=== PATIENT | female | born 1990 | race African-American/Black ===

== ENCOUNTER 2021-05-31 10:05 | Emergency (ER) | payer SELFPAY ==
[2021-05-31 10:20] VITALS: BP 126/95; PULSE 75; RESP 16; TEMP 37.2; O2SAT 100
--- NOTE | 2021-05-31 10:55 | ED.GENADULT ---
HPI - General Adult General Chief complaint: Headache Stated complaint: needs to be checked for work History of Present Illness HPI narrative: This is a 30-year-old female presents to the urgent care complaining of having some lightheadedness and a headache yesterday at work patient needed to step back that required her to go see occupational health who is requiring her to be evaluated. Patient states that this happens every 28 days when she becomes on her menstrual cycle according to patient she has severe symptoms where she becomes nauseated and vomits in severe pain. Patient denies losing any consciousness states that this happens often she just needs a few moments to sit down this is nothing new patient is here from [place] due to a daughter transferred and will be evaluated by her previous PCP and ANALYSIS MANAGER referral given Related Data Home Medications Medication Instructions Recorded Confirmed No Home Medications 05/31/21 05/31/21 Allergies Allergy/AdvReac Type Severity Reaction Status Date / Time latex Allergy Rash Verified 05/31/21 10:28 Penicillins Allergy Rash Verified 05/31/21 10:28 sulfamethoxazole Allergy Rash Verified 05/31/21 10:28 [From ] trimethoprim [From ] Allergy Rash Verified 05/31/21 10:28 Review of Systems Review of Systems: Lightheadedness All systems reviewed & are unremarkable except as noted in HPI and below PMFSH Comments At time as signature, I have reviewed and agree with nursing past medical, social, surgical and family history. Please see nursing chart for further information. There is no relevant family history pertinent to the presenting complaint. Exam Narrative: GENERAL:Well-appearing, well-nourished, and in no acute distress. HEAD:Normocephalic, EYES: PERRLA ENT: Nares clear, no rhinorrhea or epistaxis. Mucous membranes moist. Upper CHEST: Clear to auscultation. No respiratory distress. HEART: Regular rate and rhythm. ABDOMEN: Soft, nontender, normal active bowel sounds. EXTREMITIES: Normal range of motion. No edema. SKIN: Warm, dry, no rash. NEURO: No focal deficits. Alert and oriented x3. Course Vital Signs Vital signs: Vital Signs Temperature 98.9 F 05/31/21 10:20 Pulse Rate 75 05/31/21 10:20 Respiratory Rate 16 05/31/21 10:20 Blood Pressure 126/95 H 05/31/21 10:20 Pulse Oximetry 100 05/31/21 10:20 Temperature 98.9 F 05/31/21 10:20 Pulse Rate 75 05/31/21 10:20 Respiratory Rate 16 05/31/21 10:20 Blood Pressure 126/95 H 05/31/21 10:20 Pulse Oximetry 100 05/31/21 10:20 Medical Decision Making Vital Signs Vital Signs: Vital Signs Temperature 98.9 F 05/31/21 10:20 Pulse Rate 75 05/31/21 10:20 Respiratory Rate 16 05/31/21 10:20 Blood Pressure 126/95 H 05/31/21 10:20 Pulse Oximetry 100 05/31/21 10:20 Temperature 98.9 F 05/31/21 10:20 Pulse Rate 75 05/31/21 10:20 Respiratory Rate 16 05/31/21 10:20 Blood Pressure 126/95 H 05/31/21 10:20 Pulse Oximetry 100 05/31/21 10:20 Discharge Plan Discharge Clinical Impression: Headache Patient Disposition: Home, Self-Care Condition: Stable Instructions: Antibiotic Form, Acute Headache (ED), Lightheadedness (ED) Additional Instructions: Your blood pressure was elevated in the clinic today, I feel that this is due to your acute illness rather than essential hypertension. please follow-up with your regular doctor for further evaluation and monitor for evaluation of hypertension Please OSMAN schedule a followup visit with your personal physician with in the next 1-4 weeks for further evaluation and treatment. Also, ask your personal physician to assist you regarding blood pressure. Even blood pressure exceeding 120/80 may indicate pre-hypertension. If your symptoms persist, change or worsen significantly before you can contact your personal physician then please, without delay, go to the emergency department for further evalua
== END 2021-05-31 11:30 | disposition home or self-care (01) ==
PROVIDERS: Emergency Provider Nurse Practitioner Family
DX: R51.9 Headache, unspecified (principal)
CPT/HCPCS: 99213; G0463

== ENCOUNTER 2021-12-15 15:27 | Emergency (ER) | payer MEDICAID, SELFPAY ==
--- NOTE | ~2021-12-15 | US_ITS ---
EXAMINATION: US pelvic complete w TV DATE: 12/15/2021 17:54 INDICATION: History of ovarian cyst TECHNIQUE: Multiple transabdominal and endovaginal sonographic images of the pelvis were obtained. COMPARISON: None. FINDINGS: The uterus measures 6.1 x 3.3 x 3.7 cm. The endometrial complex measures 8 mm. The right ov dilip measures 2.4 x 2.3 x 1.7 cm. The left ovary measures 2.1 x 2.3 x 1.7 cm there is a 10 mm cyst of the left ovary.. There is normal vascular flow in the ovaries. There is no free fluid in the pelvis. IMPRESSION: 1. 10 mm cyst of the left ovary. Reviewed, dictated and finalized at location F.
[2021-12-15 15:36] VITALS: BP 138/87; PULSE 91; RESP 14; TEMP 36.6; O2SAT 100
[2021-12-15 16:21] LABS: Basophils Percent Auto 0.5 % (0.2-1.2); Eosinophils Absolute Auto 0.1 K/mm3 (0-0.3); Eosinophils Percent Auto 1.1 % (0-4.4); Hematocrit 41.4 % (37.0-47.0); Immature Granulocyte Absolute 0.02 K/mm3 (0.00-0.031); Immature Granulocyte Percent A 0.3 % (0-0.5); Lymphocytes Absolute Auto 1.72 K/mm3 (0.9-3.2); Lymphocytes Percent Auto 23.5 % (18.3-44.2); Mean Corpuscular HGB Conc 31.4 g/dl (32-36); Mean Corpuscular Volume 105.1 fl (80-100); Mean Platelet Volume 11.4 fl (7.4-10.4); Monocytes Absolute Auto 0.5 K/mm3 (0.1-0.6); Monocytes Percent Auto 6.8 % (2.6-8.5); Neutrophils Percent Auto 67.8 % (45.5-73.1); Platelet Count Result 185 k/mm3 (150-375); Red Blood Count 3.94 M/mm3 (4.2-5.4); Red Cell Distribution Width 12.8 % (11.5-14.5); White Blood Count 7.3 K/mm3 (4.5-10.0)
[2021-12-15 16:33] LABS: Alanine Aminotransferase 18 U/L (6-35); Albumin Level 4.5 g/dL (3.5-5.1); Alkaline Phosphatase 46 U/L (38-126); Anion Gap 8 mmol/L (8-16); Aspartate Amino Transferase 24 U/L (14-36); Bilirubin,Total 0.6 mg/dL (0.2-1.3); Blood Urea Nitrogen 13 mg/dL (7-17); Calcium 8.9 mg/dL (8.4-10.2); Carbon Dioxide 24 mmol/L (22-30); Chloride 105 mmol/L (98-107); Estimated CRCL calculation 108 ml/min; Estimated Glomerular Filt Rate > 60; Glucose 79 mg/dL (65-110); Lipase 41 U/L (23-300); Potassium 3.5 mmol/L (3.4-5.0); Sodium 137 mmol/L (137-145)
[2021-12-15 16:35] LABS: Add Urine Microscopic? YES; Appearance Urine Clear (Clear); Bilirubin Urine Negative (Negative); Blood Urine 2+ (Negative); Color Urine Yellow (Yellow); Glucose Urine UA Negative (Negative); Ketones Urine Negative (Negative); Leukocyte Esterase Ur Trace LEU/UL (Negative); Nitrate Urine Negative (Negative); Protein Urine Negative (Negative); Specific Grav Ur 1.025 (1.001-1.035); Urobilinogen Urine 0.2 mg/dL (<2.0)
[2021-12-15 16:42] LABS: Bacteria Urine 4+ /hpf; Mucus Urine Rare /lpf; Squamous Epithelial Cell Urine Few /hpf (Few)
--- NOTE | 2021-12-15 18:28 | ED.ABDPAIN ---
HPI - Abdominal Pain General Chief Complaint: Abdominal Pain Stated Complaint: abd pain- hx ovarian cyst Time Seen by Provider: 12/15/21 16:42 History of Present Illness HPI narrative: Patient is a 31-year-old female who presents ER with lower abdominal pain. Reports its been ongoing over the last couple days. She was seen at [facility] yesterday and was evaluated and told she had a ovarian cyst. Reports she did not receive an ultrasound but she did receive a CT scan. Today she started having vaginal bleeding. She reports she has been attempting to conceive a child. LMP was late September. She reports she has irregular menses. She has not had a positive test. Patient was told that we have ultrasound here in opted to come for further evaluation. No urinary frequency urgency or dysuria. Denies vaginal discharge. Her OB is located in [facility]. Related Data Home Medications Medication Instructions Recorded Confirmed vit no.95-ferrous tablet PO 12/15/21 fumarate 28 mg-folic acid 800 mcg tablet () Allergies Allergy/AdvReac Type Severity Reaction Status Date / Time grapefruit Allergy Rash Verified 12/15/21 16:42 latex Allergy Rash Verified 12/15/21 16:42 Penicillins Allergy Rash Verified 12/15/21 16:42 Review of Systems Review of Systems: All systems reviewed & are unremarkable except as noted in HPI and below Constitutional: Constitutional: Denies chills and Denies fever(s) ENT: Denies nasal congestion and Denies sore throat Cardiovascular: Cardiovascular: Denies chest pain, Denies rapid heart rate and Denies radiating jaw, neck or arm pain Gastrointestinal: Gastrointestinal: Reports abdominal pain, Denies nausea and Denies vomiting Genitourinary: Genitourinary: Denies nocturia, Denies dysuria, Reports pelvic pain and Denies flank pain PMFSH Past Medical History Medical History (Updated 12/15/21 @ 18:37 by Clinton Suarez MD) Ovarian cyst Surgical History Surgical History (Updated 12/15/21 @ 18:32 by Clinton Suarez MD) No pertinent past surgical history Exam Narrative: GENERAL: Well-appearing, well-nourished, and in no acute distress. HEAD: Normocephalic, atraumatic. EYES: PERRL and EOMI. CHEST: Clear to auscultation. No respiratory distress. HEART: Regular rate and rhythm. Normal peripheral pulses. ABDOMEN: Soft, mild pelvic discomfort right greater than left without guarding, nondistended. EXTREMITIES: Normal range of motion. No edema. SKIN: Warm, dry, no rash. NEURO: Alert and oriented x3. PSYCH: Normal mood and affect. Course Course Emergency Course: Patient resting comfortably. Informed results. Will treat urine with antibiotics given significant bacteria in a clean specimen. Discharge home. Vital Signs Vital signs: Vital Signs Temperature 97.9 F 12/15/21 15:36 Pulse Rate 91 12/15/21 15:36 Respiratory Rate 14 12/15/21 15:36 Blood Pressure 138/87 12/15/21 15:36 Pulse Oximetry 100 12/15/21 15:36 Oxygen Delivery Room Air 12/15/21 15:36 Temperature 97.9 F 12/15/21 15:36 Pulse Rate 91 12/15/21 15:36 Respiratory Rate 14 12/15/21 15:36 Blood Pressure 138/87 12/15/21 15:36 Pulse Oximetry 100 12/15/21 15:36 Oxygen Delivery Room Air 12/15/21 15:36 MDM - Abdominal Pain Lab Data Result diagrams: 12/15/21 15:46 12/15/21 15:46 Labs: Lab Results 12/15/21 12/15/21 12/15/21 Range/Units 15:46 15:46 15:46 WBC 7.3 (4.5-10.0) K/mm3 RBC 3.94 L (4.2-5.4) M/mm3 Hgb 13.0 (12.0-15.0) g/dL Hct 41.4 (37.0-47.0) % MCV 105.1 H (80-100) fl MCH 33.0 (26-34) pg MCHC 31.4 L (32-36) g/dl RDW 12.8 (11.5-14.5) % Plt Count 185 (150-375) k/mm3 MPV 11.4 H (7.4-10.4) fl Immature Gran % (Auto) 0.3 (0-0.5) % Neut % (Auto) 67.8 (45.5-73.1) % Lymph % (Auto) 23.5 (18.3-44.2) % [place] % (Auto) 6.8 (2.6-8.5) % E
[2021-12-15 19:26] VITALS: BP 135/70; PULSE 87; RESP 20; O2SAT 100
== END 2021-12-15 19:27 | disposition home or self-care (01) ==
PROVIDERS: Emergency Provider Emergency Medicine; PCP Nurse Practitioner Family
DX: N83.202 Unspecified ovarian cyst, left side (principal); N39.0 Urinary tract infection, site not specified
CPT/HCPCS: 36415; 76830; 76856; 80053; 81001; 81025; 83690; 85025; 87077; 87086; 87186; 99284

== ENCOUNTER 2022-02-18 19:10 | Emergency (ER) | payer OTHER, SELFPAY ==
[2022-02-18] VITALS (14 sets, daily range): BP systolic 131–144; BP diastolic 77–114; PULSE 94–105; RESP 16–22; TEMP 37; O2SAT 100
--- NOTE | ~2022-02-18 | CT_ITS ---
EXAMINATION: CT chst ab lorena sparks w DATE: 02/18/2022 21:25 INDICATION: right sided chest wall pain,abdominal pain,MIDLINE BACK PAIN . TECHNIQUE: Computed tomography (CT) of the chest, abdomen, and pelvis was performed with 100 mL Omnip aque-350 intravenous contrast. Automated exposure control and iterative reconstruction technique were employed. The dose-length product was 467.42 mGy-cm. COMPARISON: None FINDINGS: CHEST: No thoracic aortic injury. No mediastinal hematoma. No pericardial effusion. No acute lung injury. No pleural effusion or pneumothorax. ABDOMEN/PELVIS: No solid organ injury. No evidence of bowel or mesenteric injury. No free fluid or free air. No retroperitoneal hematoma. Pelvic contents are atraumatic. MUSCULOSKELETAL: No acute fracture. No fracture or traumatic malalignment of the thoracic or lumbar spine. IMPRESSION: No acute process detected in the chest, abdomen, or pelvis. Reviewed, dictated and finalized at location K.
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
[2022-02-18 20:36] LABS: Appearance Urine Clear (Clear); Basophils Percent Auto 0.2 % (0.2-1.2); Bilirubin Urine Negative (Negative); Blood Urine 2+ (Negative); Color Urine Yellow (Yellow); Eosinophils Percent Auto 0.1 % (0-4.4); Glucose Urine UA Negative (Negative); Hematocrit 41.2 % (37.0-47.0); Hemoglobin 13.8 g/dL (12.0-15.0); Immature Granulocyte Absolute 0.02 K/mm3 (0.00-0.031); Immature Granulocyte Percent A 0.2 % (0-0.5); Ketones Urine Negative (Negative); Leukocyte Esterase Ur Negative LEU/UL (Negative); Lymphocytes Absolute Auto 1.07 K/mm3 (0.9-3.2); Lymphocytes Percent Auto 10.5 % (18.3-44.2); Mean Corpuscular HGB Conc 33.5 g/dl (32-36); Mean Corpuscular Hemoglobin 33.2 pg (26-34); Mean Platelet Volume 11.7 fl (7.4-10.4); Monocytes Absolute Auto 0.5 K/mm3 (0.1-0.6); Monocytes Percent Auto 4.7 % (2.6-8.5); Neutrophils Absolute Auto 8.6 K/mm3 (1.3-6.7); Neutrophils Percent Auto 84.3 % (45.5-73.1); Nitrate Urine Negative (Negative); Platelet Count Result 211 k/mm3 (150-375); Protein Urine Negative (Negative); Red Blood Count 4.16 M/mm3 (4.2-5.4); Red Cell Distribution Width 12.8 % (11.5-14.5); Urobilinogen Urine 0.2 mg/dL (<2.0); White Blood Count 10.2 K/mm3 (4.5-10.0)
[2022-02-18 20:42] LABS: Bacteria Urine Trace /hpf; Mucus Urine Few /lpf; RBC Urine 21-50 /hpf (0-2); Squamous Epithelial Cell Urine Rare /hpf (Few); WBC Urine 0-3 /hpf
[2022-02-18 20:43] LABS: Add Urine Microscopic? NO
[2022-02-18] MEDS: SODIUM CHLORIDE 0.9% IV 1,000 ML 999 ML IV CONT (20:46)
[2022-02-18] MEDS: ONDANSETRON INJ 4 MG/2 ML VIAL IV PUSH (20:47)
[2022-02-18 20:48] LABS: Platelet Estimate Adequate (Adequate); Stomatocytes 1+ (NORMAL)
[2022-02-18 20:49] LABS: Lactic Acid Reflex 1.9 mmol/L (0.7-2.0)
[2022-02-18] MEDS: HYDROmorphone HCL INJ (*CRX) 1 MG/ML SYR IV PUSH (20:49)
[2022-02-18 20:51] LABS: Alanine Aminotransferase 16 U/L (6-35); Alkaline Phosphatase 47 U/L (38-126); Anion Gap 12 mmol/L (8-16); Aspartate Amino Transferase 28 U/L (14-36); Bilirubin,Total 0.6 mg/dL (0.2-1.3); Blood Urea Nitrogen 11 mg/dL (7-17); Calcium 9.8 mg/dL (8.4-10.2); Carbon Dioxide 26 mmol/L (22-30); Chloride 101 mmol/L (98-107); Estimated CRCL calculation 97 ml/min; Estimated Glomerular Filt Rate > 60; Glucose 154 mg/dL (65-110); Lipase 74 U/L (23-300); Sodium 139 mmol/L (137-145)
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
[2022-02-18] MEDS: HYDROcodone/acetaminophen (*CRX) 5-325 MG TABLET 1 TAB PO (22:04)
[2022-02-18] MEDS: CYCLOBENZAPRINE HCL 10 MG TABLET PO (22:04)
== END 2022-02-18 23:00 | disposition home or self-care (01) ==
PROVIDERS: Emergency Provider Emergency Medicine; PCP Nurse Practitioner Family
DX: S29.9XXA Unspecified injury of thorax, initial encounter (principal); S39.91XA Unspecified injury of abdomen, initial encounter; S09.90XA Unspecified injury of head, initial encounter; Y04.2XXA Assault by strike against or bumped into by another person, initial encounter
CPT/HCPCS: 36415; 70450; 71260; 72129; 72132; 74177; 80053; 81003; 81025; 83605; 83690; 85025; 96361; 96374; 96375; 99284; A9270; J1170; J2405; J7030; Q9967

== ENCOUNTER 2022-11-02 14:37 | Outpatient (CLI) | payer OTHER, SELFPAY ==
[2022-11-02 17:08] LABS: Basophils Percent Auto 0.2 % (0.2-1.2); Eosinophils Absolute Auto 0.1 K/mm3 (0-0.3); Eosinophils Percent Auto 0.5 % (0-4.4); Hematocrit 37.1 % (37.0-47.0); Hemoglobin 11.9 g/dL (12.0-15.0); Immature Granulocyte Absolute 0.09 K/mm3 (0.00-0.031); Immature Granulocyte Percent A 0.8 % (0-0.5); Lymphocytes Absolute Auto 1.09 K/mm3 (0.9-3.2); Lymphocytes Percent Auto 10.3 % (18.3-44.2); Mean Corpuscular HGB Conc 32.1 g/dl (32-36); Mean Corpuscular Hemoglobin 32.3 pg (26-34); Mean Corpuscular Volume 100.8 fl (80-100); Mean Platelet Volume 11.9 fl (7.4-10.4); Monocytes Absolute Auto 0.4 K/mm3 (0.1-0.6); Monocytes Percent Auto 3.7 % (2.6-8.5); Neutrophils Percent Auto 84.5 % (45.5-73.1); Platelet Count Result 204 k/mm3 (150-375); Red Blood Count 3.68 M/mm3 (4.2-5.4); Red Cell Distribution Width 12.7 % (11.5-14.5); White Blood Count 10.6 K/mm3 (4.5-10.0)
[2022-11-02 17:12] LABS: Glucose 1 Hour PP 50gm Dose 127 mg/dL
[2022-11-02 17:55] LABS: HIV 1/2 Ab P24 Ag Result Negative (Negative)
[2022-11-02 18:39] LABS: Hepatitis B Surface Antigen Negative (Negative); Rubella IgG Antibody 33.8 IU/ML
[2022-11-03 11:22] LABS: Rapid Plasma Reagin Non-Reactive (NonReactive)
== END 2022-11-02 14:38 | disposition home or self-care (01) ==
LOC: ANHLAB 14:39
PROVIDERS: PCP Nurse Practitioner Family; Visit Provider Student in an Organized Health Care Education/Training Program
DX: Z34.90 Encounter for supervision of normal pregnancy, unspecified, unspecified trimester (principal)
CPT/HCPCS: 36415; 82947; 84702; 85025; 85660; 86592; 86703; 86762; 86787; 86850; 86900; 86901; 87086; 87340; G0432

== ENCOUNTER 2022-12-20 13:39 | Outpatient (CLI) | payer OTHER, SELFPAY ==
[2022-12-20 15:50] LABS: Hepatitis B Surface Antigen Negative (Negative)
[2022-12-20 15:56] LABS: HAV RESULT Negative (Negative); Hepatitis B Core IgM Result Negative (Negative)
[2022-12-20 16:07] LABS: Hepatitis C Virus Antibody Negative (Negative)
== END 2022-12-20 13:40 | disposition home or self-care (01) ==
LOC: ANHLAB 13:40
PROVIDERS: PCP Nurse Practitioner Family; Visit Provider Student in an Organized Health Care Education/Training Program
DX: Z34.90 Encounter for supervision of normal pregnancy, unspecified, unspecified trimester (principal); Z3A.00 Weeks of gestation of pregnancy not specified
CPT/HCPCS: 36415; 80074; 86644; 86695; 86696; 86747

== ENCOUNTER 2023-01-08 14:58 | Outpatient (RCR) | payer OTHER, SELFPAY ==
[2023-01-03 13:38] VITALS: BP 118/75
[2023-01-05 15:55] VITALS: BP 112/69
--- NOTE | ~2023-01-08 | US_ITS ---
EXAMINATION: US OB BPP wo non-stress DATE: 01/03/2023 14:05 INDICATION: Intrauterine growth restriction. Third trimester. TECHNIQUE: Real-time pelvic ultrasound was performed. COMPARISON: Ultrasound 01/01/2023, 10/30/2022 FINDINGS: There is a single living fetus in vertex presentation. The placenta is anterior. heart rate is 135 beats per minute (bpm). The deepest vertical pocket is 7.1 cm. Biophysical profile performed by the technologist: breathing (30 sec sustained breathing in 30 minutes): 2 out of 2 movement (3 gross body movements in 30 minutes): 2 out of 2 tone (one episode of dufyvue-[id number]-[id number] limb movement): 2 out of 2 Amniotic fluid pocket (2 cm): 2 out of 2 Total score: 8 out of 8 IMPRESSION: 1. Single living fetus in vertex presentation. 2. Biophysical profile 8 out of 8. Reviewed, dictated and finalized at location E.
[2023-01-08 16:32] VITALS: BP 124/76
== END 2023-02-05 12:39 | disposition home or self-care (01) ==
LOC: ANHOBOP 14:58
PROVIDERS: PCP Nurse Practitioner Family; Visit Provider Obstetrics & Gynecology
DX: O36.5930 Maternal care for other known or suspected poor fetal growth, third trimester, not applicable or unspecified (principal); Z3A.36 36 weeks gestation of pregnancy
CPT/HCPCS: 59025; 76819

== ENCOUNTER 2023-01-10 15:47 | Inpatient (IN) | payer OTHER, SELFPAY ==
[2023-01-10] VITALS (19 sets, daily range): BP systolic 107–130; BP diastolic 61–90; PULSE 80–132; TEMP 36.6–36.8; BMI 25.9
[2023-01-10 16:56] LABS: Hematocrit 39.8 % (37.0-47.0); Hemoglobin 12.8 g/dL (12.0-15.0); Mean Corpuscular HGB Conc 32.2 g/dl (32-36); Mean Corpuscular Hemoglobin 31.9 pg (26-34); Mean Corpuscular Volume 99.3 fl (80-100); Mean Platelet Volume 12.6 fl (7.4-10.4); Platelet Count Result 154 k/mm3 (150-375); Red Blood Count 4.01 M/mm3 (4.2-5.4); Red Cell Distribution Width 13.5 % (11.5-14.5); White Blood Count 12.8 K/mm3 (4.5-10.0)
--- NOTE | 2023-01-10 17:01 | LDADM ---
This patient, Fermín Puga, was admitted to Labor/Delivery/Recovery 104 on 01/10/23 at 15:47. Plans for labor, pain management and were discussed with patient. Patient/family oriented to hospital policies and general routines including ID bracelet, bed and alarms, visiting hours, pain management, procedures, bathroom and other care routines, personal items, smoking policy, room service/diet and guest tray routines, security routines, and visiting hours. Patient/Family are encouraged to report perceived risks to care and to ask questions if they do not understand what they are told or what they should do. See OBIX for further documentation.
[2023-01-10] MEDS: DINOPROSTONE 10 MG VAG INSERT VAGINAL (17:15)
[2023-01-10 17:39] LABS: Band Neutrophils Percent 1 % (0-6); Eosinophils Absolute Manual 0.12 K/mm3 (0.02-0.5); Eosinophils Percent Manual 1 % (0-4); Lymphocytes Absolute Manual 2.81 K/mm3 (1.1-4.5); Monocytes Absolute Manual 0.76 K/mm3 (0.1-0.90); Monocytes Percent Manual 6 % (3-9); Neutrophils Absolute Manual 9.08 K/mm3 (1.7-7.2); Neutrophils Percent Manual 70 % (46-73); Total Cells Counted 100
[2023-01-10 17:40] LABS: Hypochromasia 1+ (NORMAL); Platelet Estimate Adequate (Adequate); Schistocytes None Seen (NORMAL)
--- NOTE | 2023-01-10 18:30 | PC.NURSE ---
Discussed signing of c/s consent with patient. At this time patient states that she does not want to sign consent as she wants the delivery to be in God's hands . RN educated patient on the fact that just because she signs the consent for a c/s does not necessarily mean she will have a c/s. Unsigned consent placed on front of patients chart.
--- NOTE | 2023-01-10 18:42 | WPDANESEPP ---
Anes - Eval Pre Procedure Procedure: labor epidural Date/Time: 01/10/23 18:42 Surgeon: javi Preop Diagnosis: pain during labor Pre Op Diagnosis: IOL Patient Data Age: 32 Gender: F Height: 1.78 m Weight: 82 kg Last Vital Signs Temp 36.8 C 01/10/23 17:00 Pulse 92 01/10/23 18:31 BP 122/75 01/10/23 18:31 O2 Del Method Room Air 01/10/23 16:59 Allergies Allergy/AdvReac Type Severity Reaction Status Date / Time grapefruit Allergy Mild Rash Verified 01/08/23 15:30 latex Allergy Mild Rash Verified 01/08/23 15:30 Penicillins Allergy Mild Rash Verified 01/08/23 15:30 Home Medications Medication Instructions Recorded Confirmed Type vit no.95-ferrous 1 tablet PO DAILY 12/15/21 01/10/23 History fumarate 28 mg-folic acid 800 mcg tablet () ferrous sulfate 325 mg (65 mg 325 mg PO DAILY #90 tabs 11/13/22 01/10/23 Rx iron) tablet cholecalciferol (vitamin D3) 250 250 mcg PO DAILY #30 caps 11/27/22 01/10/23 Rx mcg (10,000 unit) capsule magnesium oxide 500 mg capsule 500 mg PO BID #60 caps 11/27/22 01/10/23 Rx Laboratory Tests 01/10/23 16:51 WBC 12.8 H K/mm3 (4.5-10.0) RBC 4.01 L M/mm3 (4.2-5.4) Hgb 12.8 g/dL (12.0-15.0) Hct 39.8 % (37.0-47.0) MCV 99.3 fl (80-100) MCH 31.9 pg (26-34) MCHC 32.2 g/dl (32-36) RDW 13.5 % (11.5-14.5) Plt Count 154 k/mm3 (150-375) MPV 12.6 H fl (7.4-10.4) Immature Gran % (Auto) Not Reportable Neut % (Auto) Not Reportable Lymph % (Auto) Not Reportable [place] % (Auto) Not Reportable Eos % (Auto) Not Reportable Baso % (Auto) Not Reportable Lymph # (Auto) Not Reportable [place] # (Auto) Not Reportable Eos # (Auto) Not Reportable Baso # (Auto) Not Reportable Abs Immat Gran (auto) Not Reportable Absolute Neuts (auto) Not Reportable Absolute Nucleated RBC Not Reportable Total Counted 100 Neutrophils % (Manual) 70 % (46-73) Band Neutrophils % 1 % (0-6) Lymphocytes % (Manual) 22.0 % (18-44) Monocytes % (Manual) 6 % (3-9) Eosinophils % (Manual) 1 % (0-4) Nucleated RBC % Not Reportable Abs Neuts (Manual) 9.08 H K/mm3 (1.7-7.2) Abs Lymphs (Manual) 2.81 K/mm3 (1.1-4.5) Abs Monocytes (Manual) 0.76 K/mm3 (0.1-0.90) Absolute Eos (Manual) 0.12 K/mm3 (0.02-0.5) Platelet Estimate Adequate (Adequate) Hypochromasia 1+ (NORMAL) Schistocytes None seen (NORMAL) RPR Pending Blood Type O Positive Antibody Screen Negative Patient hx anesthesia problems: none Family hx anesthesia problems: none Results Review: All pre-operative results and documents have been reviewed as part of the pre-operative evaluation. [facility] Past Medical History Medical History (Updated 01/10/23 @ 18:42 by Ibis Hearn CRNA) IUP (intrauterine ), incidental Ovarian cyst Surgical History Surgical History H/O hernia repair Family History Family History (Updated 01/08/23 @ 15:32 by Chelsie Hansen RN) Other Patient denies significant medical history Social History Social History Smoking status: Never smoker Alcohol intake: never Substance use: never Substance use type: does not use Lack of Transportation: No Lack of Food: Never True Current Housing: I Have Housing Concerned About Future Housing: No Difficulty Paying Gas/Electric Bills: No Difficulty Paying for Meds: No Currently Unemployed: No Education: High School Diploma/GED Difficulty w/ Childcare or Family Care: No Living arrangements: with family Occupation/Education: occupation Gender identity (if verbalized by the patient): Female Sexual Orientation (if Verbalized by the Patient): Straight or Heterosexual Spirit
[2023-01-11] VITALS (117 sets, daily range): BP systolic 73–152; BP diastolic 38–128; PULSE 80–259; RESP 16–18; TEMP 36.4–37.3; O2SAT 77–100
[2023-01-11] MEDS: LACTATED RINGERS 1,000 ML 125 ML IV CONT ×3 (00:30→04:48)
[2023-01-11] MEDS: ONDANSETRON INJ 4 MG/2 ML VIAL IV PUSH (01:50)
[2023-01-11] MEDS: TERBUTALINE SULFATE 1 MG/ML VIAL 0.25 MG SUB-Q (03:09)
[2023-01-11] MEDS: OXYTOCIN 30 UNITS/NS 500 ML 30 UNITS/500 ML BAG IV CONT (07:15)
--- NOTE | 2023-01-11 08:05 | WPDHPUPDATE1 ---
History and Physical Update Update Date/Time: 01/11/23 08:05 History and Physical has been reviewed, including an updated exam of the patient. There are NO changes in the patient's condition. Risks, benefits, and alternatives have been discussed and questions answered. Patient agrees to proceed with procedure.
--- NOTE | 2023-01-11 08:05 | WPDOBADMIT ---
Obstetrics - Admit Note Admission Note: record reviewed. No pertinent additions to the history and/or any subsequent changes in the physical findings that are not consistent with the expected course of the were found. Additions to the history and/or subsequent changes in the physical findings follow. None.
--- NOTE | 2023-01-11 08:05 | PM.OBPRVD ---
OB - Delivery Note Procedure Events: Intrauterine Growth Restriction (IUGR) Induction method: Per Cervidil Protocol Delivery augmentation: Pitocin Delivery monitor: External FHT and External Uterine Route of delivery: Episiotomy description: None Laceration Description: None Specimen: Yes Quantitative Blood Loss (ml): 300 Anesthesia type: Epidural Disposition: Floor Complications: None Narrative: Patient prepped and draped in usual manner for this procedure. Maternal expulsive efforts readily delivered vertex over intact perineum. Nuchal cord was noted and reduced, and the rest of baby was delivered without difficulty. Cord clamped cut baby was passed off the operative field. Placenta delivered spontaneously. Uterus was well contracted with no significant bleeding. Cervix vagina vulva were inspected with no significant lacerations or tears. At this point the procedure was considered terminated in the immediate postoperative condition of mother and baby were both excellent. [place] Baby Weeks of gestation at delivery: 37 gender: Male Weight (pounds): 6 Weight (ounces): 5 presentation: vertex position: Right Occiput Anterior Placenta delivery description: Spontaneous Cord Vessel Description: 3 Vessels, Nuchal Cord and Reduced score one minute: 8 score five minutes: 9 AMG Delivery Billing Delivery Delivery: Delivery Charge
[2023-01-11] MEDS: OXYTOCIN 30 UNITS/NS 500 ML 30 UNITS/500 ML BAG 125 UNITS IV CONT (08:27)
[2023-01-11] MEDS: WITCH HAZEL 40 PADS 1 PAD TOPICAL (10:13)
--- NOTE | 2023-01-11 10:35 | PC.NURSE ---
Patient transferred to post room #287 via wheelchair. Support person present. Oriented to unit, room, information board, rooming in, admission packet and security measures. Patient verbalizes understanding.
[2023-01-11 10:54] LABS: Rapid Plasma Reagin Non-Reactive (NonReactive)
--- NOTE | 2023-01-11 13:59 | PCDIET ---
[id number] Introductions were made, then consulted with patient to assess needs related to . Mother led the conversation with her?plans to feed?her and the?experience so far. Resources provided for inpatient services with the feeding sheet, mom/baby guide and name written on the white board. Mom plans to pump after shower. Zomee pump kit to be utilized and consent signed by mom for billing/receipt of new pump. Mother voiced understanding of information and will call if there is a request for assistance or to begin using the new pump after shower. Reported to the primary RN.
--- NOTE | 2023-01-11 15:03 | PC.NURSE ---
1430 Introductions were made, then consulted with patient to assess needs related to . Mother led the conversation with her?plans to feed?her and the?experience so far. Mother is pumping until results of labs are in, per M.D. Mother given Zomee Z2 pump and set up the pump with mom to ensure she understands how to utilize it properly. Size 21 flanges utilized to fit mom's breast properly. Mother states that no discomfort is noted with pumping. Encouraged to pump for 15-20 minutes on each breast every 3-4 hours. No milk noted with first attempt. Discussed measures in preparation for putting baby to breast. Encouraged understanding of the benefits of skin to skin (demonstrating unwrapping infant and placing upright on her chest), stimulating with massage touch, changing positions to encourage wakefulness, how to watch for early feeding cues, responsive feeding, feeding on demand (aiming for 8-12 times in 24 hours, about every 2-3 hours), milk production, building/maintaining a milk supply, duration of feeding, signs of adequate intake/output and how to record on the feeding sheet. Utilized resources to explain positioning and ear, shoulder, hip alignment, supporting the breast to facilitate a deep latch, asymmetrical latch (off-center), leading with the chin with a big, open, wide gape and body close to mother. Nipple care reviewed with optimal latch and good positioning. Suggested comfort measures of healing with a warm and wet washcloth to rinse breast, then leave open to air-dry as needed with . Reviewed good handwashing when or touching the breast/nipples to prevent infection. Resources used to facilitate learning were used with the [visual handouts, mom and baby guide]. Mother voiced understanding of the and pumping information discussed, demonstrated learning and states she will call if there is a request for assistance. Reported to primary RN.
[2023-01-11] MEDS: DOCUSATE SODIUM 100 MG CAPSULE PO (20:45)
[2023-01-11] MEDS: IBUPROFEN 600 MG TABLET PO (20:45)
--- NOTE | 2023-01-12 08:40 | PM.OBDSVD ---
DS: Admitting Diagnosis Discharge Date 01/12/23 Admitting Diagnosis intrauterine growth restriction intrauterine at term DS: Discharge Diagnosis Discharge Diagnosis (1) Supervision of high risk , unspecified, third trimester: Code(s): O09.93 - Supervision of high risk , unspecified, third trimester Status: Acute (2) Intrauterine growth restriction (IUGR) affecting care of mother, third trimester, single gestation: Code(s): O36.5930 - Maternal care for other known or suspected poor growth, third trimester, not applicable or unspecified Status: Acute OB - DS: Summary OB Procedures : None OB Procedures Intrapartum: Spontaneous Vag Delivery OB Procedures: : None Status at Discharge Functional status at discharge: independent ambulation Overall status at discharge: patient is back to baseline Time Spent with Patient Time attestation: Total time spent providing and/or coordinating discharge services: Time spent: Less than 30 minutes Exam Const: General: comfortable and no acute distress Resp: Effort & Inspection: normal respiratory effort Auscultation: clear to auscultation bilaterally Cardio: Rate: regular rate GI: GI Palp: Yes Soft to palpation Auscultation: normal bowel sounds Other: Fundus firm below umbilicus Psych: Appearance: grossly normal Mental Status: mental status grossly normal Affect: normal affect DS: Data Data Completed and Pending Pending studies at discharge: Pending at discharge 01/11/23 07:55 Surgical [PTH] Routine Labs on day of discharge: Labs from last 24 hours 01/10/23 16:51 RPR Non-reactive Discharge Plan Discharge Discharging Clinician: Juanjose Kelly Patient Disposition: Home, Self-Care Activity: as tolerated and pelvic rest Diet: regular Patient Instructions: Antibiotic Form, Vaginal Delivery (DC) Stand Alone Forms: General Discharge Information Follow-up/Referrals: Arnie Damon MD [Physician] - 4 Weeks Discharge Medications: New acetaminophen 500 mg tablet 500 mg PO Q6H PRN (Reason: pain) Qty: 30 0RF ibuprofen 600 mg tablet 600 mg PO Q6H PRN (Reason: pain) Qty: 30 0RF Continued ferrous sulfate 325 mg (65 mg iron) tablet 325 mg PO DAILY Qty: 90 0RF magnesium oxide 500 mg capsule 500 mg PO BID Qty: 60 1RF cholecalciferol (vitamin D3) 250 mcg (10,000 unit) capsule 250 mcg PO DAILY Qty: 30 1RF PNV cmb#95-ferrous fumarate-FA [] 28 mg iron- 800 mcg tablet 1 tablet PO DAILY Date of admission: 01/10/23 15:47 Primary Care Provider: Renny,Stefani Wren Admitting Provider: Arnie Damon Attending physician on admission: Arnie Damon Condition: Stable
[2023-01-12 08:50] LABS: Hematocrit 33.2 % (37.0-47.0)
[2023-01-12 09:40] VITALS: BP 129/76; PULSE 80; RESP 18; TEMP 36.9; O2SAT 100
[2023-01-12] MEDS: MULTIVIT/MIN/PREN/FOL AC/IRON TABLET 1 TAB PO (11:11)
[2023-01-12] MEDS: IBUPROFEN 600 MG TABLET PO (11:11)
[2023-01-12] MEDS: DOCUSATE SODIUM 100 MG CAPSULE PO (11:11)
--- NOTE | 2023-01-12 14:25 | WPDANLDPN2 ---
Anes-Prog Note L&D Date/Time: 01/12/23 14:25 Neuro status: Neuro function grossly intact. Vital Signs: Last Vital Signs Temp 36.9 C 01/12/23 09:40 Pulse 80 01/12/23 09:40 Resp 18 01/12/23 09:40 BP 129/76 01/12/23 09:40 Pulse Ox 100 01/12/23 09:40 O2 Del Method Room Air 01/12/23 09:15 Pain score (VAS): 0 Patient feedback: Patient satisfied with anesthetic care.
[2023-01-13 11:39] VITALS: BP 136/84; PULSE 88; RESP 18; TEMP 36.8; O2SAT 99
== END 2023-01-12 14:26 | disposition home or self-care (01) | DRG 560 ==
LOC: ANHOB2 01-12 12:34 → ANHLDR 01-15 11:11 → ANHOB2 01-15 11:11
PROVIDERS: Admitting Provider Obstetrics & Gynecology; PCP Nurse Practitioner Family; Visit Provider Student in an Organized Health Care Education/Training Program
DX: O69.1XX0 Labor and delivery complicated by cord around neck, with compression, not applicable or unspecified (principal); O36.5930 Maternal care for other known or suspected poor fetal growth, third trimester, not applicable or unspecified; Z3A.37 37 weeks gestation of pregnancy; Z37.0 Single live birth
CPT/HCPCS: 36415; 84112; 85014; 85018; 85025; 86592; 86850; 86900; 86901; 87070; 87077; 87186; 87205; 88307; A9270; J2405; J2590; J2795; J3105; J7120

== ENCOUNTER 2023-05-22 13:48 | Outpatient (CLI) | payer OTHER, SELFPAY ==
[2023-05-22 15:27] LABS: Hepatitis B Surface Antigen Negative (Negative)
[2023-05-22 15:33] LABS: HAV RESULT Negative (Negative); Hepatitis B Core IgM Result Negative (Negative)
[2023-05-22 15:35] LABS: HIV 1/2 Ab P24 Ag Result Negative (Negative)
[2023-05-22 15:45] LABS: Hepatitis C Virus Antibody Negative (Negative)
[2023-05-23 10:49] LABS: Rapid Plasma Reagin Non-Reactive (NonReactive)
== END 2023-05-22 13:49 | disposition home or self-care (01) ==
LOC: ANHLAB 13:49
PROVIDERS: PCP Nurse Practitioner Family; Visit Provider Obstetrics & Gynecology
DX: Z11.3 Encounter for screening for infections with a predominantly sexual mode of transmission (principal)
CPT/HCPCS: 36415; 80074; 86592; 86695; 86696; 86703; G0432

== ENCOUNTER 2024-07-22 12:06 | Outpatient (CLI) | payer OTHER, SELFPAY ==
--- OUTSIDE RECORDS SUMMARY | 2024-07-22 12:57 | XMS_ITS | Clinical Summary ---
Author Organization [facility] Address [address] [place] [address] Phone Care Team Providers Care Feed Project Engineer Name Role Phone Penny Serna MD Primary Care Provider [phone] Allergies Active Allergy Reactions Criticality Noted Date Comments Grapefruit Extract Hives 02/11/2021 Latex Rash 05/23/2019 Penicillins Rash 05/23/2019 Medications ketorolac (TORADOL) 10 MG Tablet Take 1 Tab by mouth every 6 hours as needed for Moderate or more severe pain. 20 Tab 9 Active Additional Information Patient not taking.Reported on 02/11/2021 metoclopramide (REGLAN) 10 MG Tablet Take 1 Tab by mouth 4 times daily as needed for Nausea - 1st line. 10 Tab 9 Active Additional Information Patient not taking.Reported on 02/11/2021 B Complex Vitamins (VITAMIN B COMPLEX PO) Take by mouth. Act ashley VITAMIN D PO Take by mouth. Ac tive Zinc Sulfate (ZINC-220 PO) Take by mouth. A ctive Ferrous Sulfate (IRON PO) Take by mouth. Activ e ondansetron (ZOFRAN-ODT) 4 MG TABLET DISPERSIBLEIndi cations:Nausea Take 1 Tablet by mouth every 8 hours as needed for Nausea - 1st line. 10 Tablet 1 Active Active Problems No known active problems Encounters Date Type Department Care Team Description 06/12/2024 Lab Requisition [facility] Laboratory Services [address] [place] [address] Sharda Rivero, OUTPATIENT PSYCHIATRIST, REBAR BENDER 06/12/2024 Travel from Last 3 Months Social History Tobacco Use Types Packs/Day Years Used Date Smoking Tobacco: Never Smokeless Tobacco: Never Tobacco Cessation:Counseling Given: Not Answered Alcohol Use Standard Drinks/Week Comments Never 0 (1 standard drink = 0.6 oz pur e alcohol) AUDIT-C Answer Date Recorded Frequency of Alcohol Consumption Never 05/23/2019 Average Number of Drinks Not on file 019 Frequency of Binge Drinking Not on file 04/26 Comments Unknown Sex and Gender Information Value Date Recorded Sex Assigned at Not on file Legal Sex Female 10:01 AM LABORATORY ANIMAL FACILITY SUPERVISOR Gender Identity Not on file Sexual Orientation Not on file Last Filed Vital Signs Vital Sign Reading Time Taken Comments Blood Pressure 115/70 06/05/2022 12:33 AM LABORATORY ANIMAL FACILITY SUPERVISOR Pulse 92 06/05/2022 12:33 AM LABORATORY ANIMAL FACILITY SUPERVISOR Temperature 37.2 ??C (99 ??F) 06/05/2022 12:33 AM LABORATORY ANIMAL FACILITY SUPERVISOR Respiratory Rate 18 06/05/2022 12:33 AM LABORATORY ANIMAL FACILITY SUPERVISOR Oxygen Saturation 100% 06/05/2022 12:33 AM LABORATORY ANIMAL FACILITY SUPERVISOR Inhaled Oxygen Concentration - - Weight 69.4 kg (153 lb) 06/05/2022 12:33 AM LABORATORY ANIMAL FACILITY SUPERVISOR Height 177.8 cm (5' 10 ) 06/05/2022 12:33 AM LABORATORY ANIMAL FACILITY SUPERVISOR Body Mass Index 21.95 06/05/2022 12:33 AM LABORATORY ANIMAL FACILITY SUPERVISOR Plan of Treatment Health Maintenance Due Date Last Done Comments Hepatitis C Virus (HCV) Screening 1990 TdaP Immunization 1990 Pap Smear 2011 Cervical Cancer Screening (CCS) 2020 HPV/Cotest 2020 Influenza Immunization (#1) 2024 SARS-COV-2 Immunization ( season) 2024 Respiratory Syncytial Virus (RSV) Immunization (Adult) (1 - 1-dose 75+ series) 2065 Hepatitis B Immunization Completed 002, 05/01/2001, 03/20/2001 DTaP/Tdap/Td Immunization Discontinued 2004, 10/23/1994, 03/30/1993, Additional history exists Meningococcal Immunization (ACWY) Aged Out No longer eligible based on patient's age to complete this topic Pneumococcal Immunization Combined Aged Out No longer eligible based on patient's age to complete this topic Rotavirus Immunization Aged Out No lo nger eligible based on patient's age to complete this topic Procedures Procedure Name Priority Date/Time Associated Diagnosis Comments QUANTIFERON-TB GOLD PLUS Routine 06/12/2024 10:00 AM LABORATORY ANIMAL FACILITY SUPERVISOR HERPES ZOSTER (VARICELLA) IGG Routine 06/12/2024 10:00 AM LABORATORY ANIMAL FACILITY SUPERVISOR RUBEOLA (MEASLES) IGG Routine 06/12/2024 10:00 AM LABORATORY ANIMAL FACILITY SUPERVISOR RUBELLA IMMUNITY IGG Routine 06/12/2024 10:00 AM LABORATORY ANIMAL FACILITY SUPERVISOR MUMPS IGG Routine 06/12/2024 10:00 AM LABORATORY ANIMAL FACILITY SUPERVISOR MMRV PANEL Routine 06/12/2024 10:00 AM LABORATORY ANIMAL FACILITY SUPERVISOR HEPATITIS B SURFACE ANTIBODY (HBSAB) Routine 06/12/2024 10:00 AM LABORATORY ANIMAL FACILITY SUPERVISOR from Last 3 Months Results * QUANTIFERON-TB GOLD PLUS (06/12/2024 10:00 AM LABORATORY ANIMAL FACILITY SUPERVISOR) NIL CONTROL 0.02 <8.01 IU/mL 06/15/2024 9:39 AM LABORATORY ANIMAL FACILITY SUPERVISOR [facility] TB ANTIGEN 1 0.08 <0.35 IU/mL 06/15/2024 9:39 AM LABORATORY ANIMAL FACILITY SUPERVISOR [facility] TB ANTIGEN 2 0.01 <0.35 IU/mL 06/15/2024 9:39 AM LABORATORY ANIMAL FACILITY SUPERVISOR [facility] MITOGEN CONTROL 9.98 >0.49 IU/mL 06/15/20 9:39 AM LABORATORY ANIMAL FACILITY SUPERVISOR [facility] INTEPRETATION TB NEGATIVE NEGATIVE, NEGATIVE (TB antigen response less than 25% of internal negative control value) 06/15/2024 9:39 AM LABORATORY ANIMAL FACILITY SUPERVISOR [facility] Comment:No immune response t o Mycobacterium tuberculosis antigens was noted. M. tuberculosis infection unlikely. Blood Venipuncture / Unknown 06/12/2024 10:00 AM LABORATORY ANIMAL FACILITY SUPERVISOR 06/12/2024 11:05 AM LABORATORY ANIMAL FACILITY SUPERVISOR Narrative [facility] - 06/15/2024 9:39 AM LABORATORY ANIMAL FACILITY SUPERVISOR A POSITIVE QUANTIFERON-TB GOLD PLUS RESULT SHOULD NOT BE THE SOLE OR DEFINITIVE BASIS FOR DETERMINING INFECTION WITH M.TUBERCULOSIS. Diagnosing or excluding tuberculosis disease, and assessing the probability of LTBI, requires a combination of epidemiological, historical, medical and diagnostic findings (e.g., acid fast bacilli (AFB) smear and culture, chest xray) that should be taken into account when interpreting QFT-Plus results. Furthermore, the magnitude of the measured gamma interferon level cannot be correlated to stage or degree of infection, level of immune responsiveness, or likelihood for progression to active disease. The Nil control adjusts for background (e.g., elevated levels of circulating gamma interferon or presence of heterophile antibodies). The Mitogen control serves as an internal positive control and verifies each specimen tested can produce a gamma interferon response. Low mitogen may occur with insufficient lymphocytes, reduced lymphocyte activity due to improper specimen handling, filling/mixing of the mitogen tube, or inability of the patient's lymphocytes to generate gamma interferon. Infection with other Mycobacteria, including M. kansasii, M. szulgai, and M. marinum, may cause false positive results. A negative QuantiFERON-TB Gold Plus result does not preclude the possibility of M. tuberculosis infection or tuberculosis disease: false negative results can be due to incorrect blood sample collection/ improper handling of the specimen, stage of infection (e.g., specimen obtained prior to the development of cellular immune response), co-morbid conditions which affect immune function, or other individual immunological factors. The minimum number of lymphocytes required for a reliable test has not been established and may also be variable. Diagnostic testing for Mycobacterium tuberculosis using Interferon Gamma Release Assays should follow applicable published guidelines, including when testing in populations such as children, women, and HIV-infected or otherwise immunocompromised individuals. https://www.cdc.gov/tb/publications/guidelines/testing.htm us Sharda Rivero OUTPATIENT PSYCHIATRIST, REBAR BENDER IMMUNOLOGY ORDERABL ES Final Result [facility] [address] [place] [address], [place] * MUMPS IGG (06/12/2024 10:00 AM LABORATORY ANIMAL FACILITY SUPERVISOR) Mumps Ab IgG 2.2 >=1.1 AI 06/12/2024 10:31 PM LABORATORY ANIMAL FACILITY SUPERVISOR [facility] Blood Venipuncture / Unknown 06/12/2024 10:00 AM LABORATORY ANIMAL FACILITY SUPERVISOR 06/12/2024 11:05 AM LABORATORY ANIMAL FACILITY SUPERVISOR Narrative [facility] - 06/12/2024 10:31 PM LABORATORY ANIMAL FACILITY SUPERVISOR <= 0.8 Negative. ??No detectable Mumps IgG antibody. 0.9 - 1.0 Equivocal >=1.1 Positive Antibody testing was performed by multiplex flow immunoassay on the BioPlex platform. Sharda L Behselvin OUTPATIENT PSYCHIATRIST, REBAR BENDER IMMUNOLOGY ORDERABL ES Final Result Performing Organization Address City/[facility]/ZIP Co de Phone Number [facility] [address] [place] [address], [place] * HERPES ZOSTER (VARICELLA) IGG (06/12/2024 10:00 AM LABORATORY ANIMAL FACILITY SUPERVISOR) VARICELLA ZOSTER IGG 1.7 >=1.1 AI 06/12/2024 10:31 PM LABORATORY ANIMAL FACILITY SUPERVISOR [facility] Blood Venipuncture / Unknown 06/12/2024 10:00 AM LABORATORY ANIMAL FACILITY SUPERVISOR 06/12/2024 11:05 AM LABORATORY ANIMAL FACILITY SUPERVISOR Narrative [facility] - 06/12/2024 10:31 PM LABORATORY ANIMAL FACILITY SUPERVISOR <= 0.8 Negative. ??No detectable VZV IgG antibody. 0.9 - 1.0 Equivocal >=1.1 Positive Antibody testing was performed by multiplex flow immunoassay on the BioPlex platform. us Sharda L Behrends OUTPATIENT PSYCHIATRIST, REBAR BENDER IMMUNOLOGY ORDERABL ES Final Result [facility] [address] [place] [address], [place] * RUBEOLA (MEASLES) IGG (06/12/2024 10:00 AM LABORATORY ANIMAL FACILITY SUPERVISOR) MEASLES AB IGG 3.2 >=1.1 AI 06/12/2024 10:31 PM LABORATORY ANIMAL FACILITY SUPERVISOR [facility] Blood Venipuncture / Unknown 06/12/2024 10:00 AM LABORATORY ANIMAL FACILITY SUPERVISOR 06/12/2024 11:05 AM LABORATORY ANIMAL FACILITY SUPERVISOR Narrative [facility] - 06/12/2024 10:31 PM LABORATORY ANIMAL FACILITY SUPERVISOR <= 0.8 Negative. ??No detectable Measles IgG antibody. 0.9 - 1.0 Equivocal >=1.1 Positive Antibody testing was performed by multiplex flow immunoassay on the BioPlex platform. us Sharda Joe Rivero OUTPATIENT PSYCHIATRIST, REBAR BENDER IMMUNOLOGY ORDERABL ES Final Result Performing Organization Address [facility] Co de Phone Number [facility] [address] [place] [address], [place] * RUBELLA IMMUNITY IGG (06/12/2024 10:00 AM LABORATORY ANIMAL FACILITY SUPERVISOR) RUBELLA IMMUNITY Immune Immune, Invalid 06/12/2024 10:31 PM LABORATORY ANIMAL FACILITY SUPERVISOR [facility] RUBELLA IGG QUANT 2.20 >=1.0 AI AI 06/12/2024 10:31 PM LABORATORY ANIMAL FACILITY SUPERVISOR [facility] Blood Venipuncture / Unknown 06/12/2024 10:00 AM LABORATORY ANIMAL FACILITY SUPERVISOR 06/12/2024 11:05 AM LABORATORY ANIMAL FACILITY SUPERVISOR Narrative [facility] - 06/12/2024 10:31 PM LABORATORY ANIMAL FACILITY SUPERVISOR Antibody testing was performed by multiplex flow immunoassay on the BioPlex platform. us Shrada Joe Behselvin OUTPATIENT PSYCHIATRIST, REBAR BENDER CHEMISTRY ORDERABLE S Final Result Performing Organization Address City/[facility]/ZIP Co de Phone Number [facility] [address] [place] [address], [place] * HEPATITIS B SURFACE ANTIBODY (HBSAB) (06/12/2024 10:00 AM LABORATORY ANIMAL FACILITY SUPERVISOR) HEPATITIS B SURFACE ANTIBODY 15.42 mIU/mL 06/12/2024 10:26 PM LABORATORY ANIMAL FACILITY SUPERVISOR [facility] Comment: Detected Range: >12.00 Individual is considered immune to HBV infection Blood Venipuncture / Unknown 06/12/2024 10:00 AM LABORATORY ANIMAL FACILITY SUPERVISOR 06/12/2024 11:05 AM LABORATORY ANIMAL FACILITY SUPERVISOR us Sharda Rivero OUTPATIENT PSYCHIATRIST, REBAR BENDER CHEMISTRY ORDERABLE S Final Result [facility] [address] [place] [address], [place] from Last 3 Months Insurance MEDICAID [place] Care Teams Feed Project Engineer Relationship Specialty Start Date End Date Penny Serna MD [address] [place] [address] PCP - General Internal Medicine 05/17/22
--- OUTSIDE RECORDS SUMMARY | 2024-07-22 12:57 | XMS_ITS | Encounter Summary ---
Author Organization [facility] Address [address] [place] [address] Phone Care Team Providers Care Sizing Sprayer Name Role Phone Penny Serna MD Primary Care Provider [phone] Encounter Details Date Type Department Care Team (Late st Contact Info) Description 06/12/[address] [facility] Laboratory Services [address] [place] [address] Sharda Rivero, MEDICARE INTERVIEWER, PRODUCT MANAGEMENT MANAGER [address] [place] [address] Social History Tobacco Use Types Packs/Day Years Used Date Smoking Tobacco: Never Smokeless Tobacco: Never Alcohol Use Standard Drinks/Week Comments Never 0 (1 standard drink = 0.6 oz pur e alcohol) AUDIT-C Answer Date Recorded Frequency of Alcohol Consumption Never 05/23/2019 Average Number of Drinks Not on file 019 Frequency of Binge Drinking Not on file 04/26 Comments Unknown Sex and Gender Information Value Date Recorded Sex Assigned at Not on file Legal Sex Female 10:01 AM CAR MANAGER Gender Identity Not on file Sexual Orientation Not on file documented as of this encounter Plan of Treatment Not on file documented as of this encounter Procedures Procedure Name Priority Date/Time Associated Diagnosis Comments QUANTIFERON-TB GOLD PLUS Routine 06/12/2024 10:00 AM CAR MANAGER MMRV PANEL Routine 06/12/2024 10:00 AM CAR MANAGER MUMPS IGG Routine 06/12/2024 10:00 AM CAR MANAGER HERPES ZOSTER (VARICELLA) IGG Routine 06/12/2024 10:00 AM CAR MANAGER RUBEOLA (MEASLES) IGG Routine 06/12/2024 10:00 AM CAR MANAGER RUBELLA IMMUNITY IGG Routine 06/12/2024 10:00 AM CAR MANAGER HEPATITIS B SURFACE ANTIBODY (HBSAB) Routine 06/12/2024 10:00 AM CAR MANAGER documented in this encounter Results * QUANTIFERON-TB GOLD PLUS (06/12/2024 10:00 AM CAR MANAGER) NIL CONTROL 0.02 <8.01 IU/mL 06/15/2024 9:39 AM CAR MANAGER [facility] TB ANTIGEN 1 0.08 <0.35 IU/mL 06/15/2024 9:39 AM [facility] TB ANTIGEN 2 0.01 <0.35 IU/mL 06/15/2024 9:39 AM [facility] MITOGEN CONTROL 9.98 >0.49 IU/mL 06/15/20 9:39 AM [facility] INTEPRETATION TB NEGATIVE NEGATIVE, NEGATIVE (TB antigen response less than 25% of internal negative control value) 06/15/2024 9:39 AM [facility] Comment:No immune response t o Mycobacterium tuberculosis antigens was noted. M. tuberculosis infection unlikely. Blood Venipuncture / Unknown 06/12/2024 10:00 AM CAR MANAGER 06/12/2024 11:05 AM CAR MANAGER Narrative [facility] - 06/15/2024 9:39 AM CAR MANAGER A POSITIVE QUANTIFERON-TB GOLD PLUS RESULT SHOULD [...] otherwise immunocompromised individuals. https://www.cdc.gov/tb/publications/guidelines/testing.htm us Sharda Rivero MEDICARE INTERVIEWER, PRODUCT MANAGEMENT MANAGER IMMUNOLOGY ORDERABL ES Final Result [facility] [address] [facility] [place] [address], * HERPES ZOSTER (VARICELLA) IGG (06/12/2024 10:00 AM CAR MANAGER) VARICELLA ZOSTER IGG 1.7 >=1.1 AI 06/12/2024 10:31 PM CAR MANAGER [facility] Blood Venipuncture / Unknown 06/12/2024 10:00 AM CAR MANAGER 06/12/2024 11:05 AM CAR MANAGER Narrative [facility] - 06/12/2024 10:31 PM CAR MANAGER <= 0.8 Negative. ??No detectable VZV IgG antibody. 0.9 - 1.0 Equivocal >=1.1 Positive Antibody testing was performed by multiplex flow immunoassay on the BioPlex platform. Sharda Joe Behselvin MEDICARE INTERVIEWER, PRODUCT MANAGEMENT MANAGER IMMUNOLOGY ORDERABL ES Final Result Performing Organization Address [facility] Co de Phone Number [facility] [address] [place] [address], [place] * RUBEOLA (MEASLES) IGG (06/12/2024 10:00 AM CAR MANAGER) MEASLES AB IGG 3.2 >=1.1 AI 06/12/2024 10:31 PM CAR MANAGER [facility] Blood Venipuncture / Unknown 06/12/2024 10:00 AM CAR MANAGER 06/12/2024 11:05 AM CAR MANAGER Narrative [facility] - 06/12/2024 10:31 PM CAR MANAGER <= 0.8 Negative. ??No detectable Measles IgG antibody. 0.9 - 1.0 Equivocal >=1.1 Positive Antibody testing was performed by multiplex flow immunoassay on the BioPlex platform. Sharda Rivero MEDICARE INTERVIEWER, PRODUCT MANAGEMENT MANAGER IMMUNOLOGY ORDERABL ES Final Result Performing Organization Address [facility] Co de Phone Number [facility] [address] [place] [address], [place] * RUBELLA IMMUNITY IGG (06/12/2024 10:00 AM CAR MANAGER) RUBELLA IMMUNITY Immune Immune, Invalid 06/12/2024 10:31 PM CAR MANAGER [facility] RUBELLA IGG QUANT 2.20 >=1.0 AI AI 06/12/2024 10:31 PM CAR MANAGER [facility] Blood Venipuncture / Unknown 06/12/2024 10:00 AM CAR MANAGER 06/12/2024 11:05 AM CAR MANAGER Narrative [facility] - 06/12/2024 10:31 PM CAR MANAGER Antibody testing was performed by multiplex flow immunoassay on the BioPlex platform. us Sharda Joe Rivero MEDICARE INTERVIEWER, PRODUCT MANAGEMENT MANAGER CHEMISTRY ORDERABLE S Final Result Performing Organization Address City/[facility]/ZIP Co de Phone Number [facility] [address] [place] [address], [place] * MUMPS IGG (06/12/2024 10:00 AM CAR MANAGER) Mumps Ab IgG 2.2 >=1.1 AI 06/12/2024 10:31 PM CAR MANAGER [facility] Blood Venipuncture / Unknown 06/12/2024 10:00 AM CAR MANAGER 06/12/2024 11:05 AM CAR MANAGER Narrative [facility] - 06/12/2024 10:31 PM CAR MANAGER <= 0.8 Negative. ??No detectable Mumps IgG antibody. 0.9 - 1.0 Equivocal >=1.1 Positive Antibody testing was performed by multiplex flow immunoassay on the BioPlex platform. us Sharda Joe Rivero MEDICARE INTERVIEWER, PRODUCT MANAGEMENT MANAGER IMMUNOLOGY ORDERABL ES Final Result Performing Organization Address [facility] Co de Phone Number [facility] [address] [place] [address], [place] * HEPATITIS B SURFACE ANTIBODY (HBSAB) (06/12/2024 10:00 AM CAR MANAGER) HEPATITIS B SURFACE ANTIBODY 15.42 mIU/mL 06/12/2024 10:26 PM CAR MANAGER [facility] Comment: Detected Range: >12.00 Individual is considered immune to HBV infection Blood Venipuncture / Unknown 06/12/2024 10:00 AM CAR MANAGER 06/12/2024 11:05 AM CAR MANAGER us Sharda L Behrends MEDICARE INTERVIEWER, PRODUCT MANAGEMENT MANAGER CHEMISTRY ORDERABLE S Final Result Performing Organization Address City/[facility]/ZIP Co de Phone Number [facility] [address] [place] [address], [place] documented in this encounter Visit Diagnoses Not on filedocumented in this encounter Care Teams Sizing Sprayer Relationship Specialty Start Date End Date Penny Serna MD [address] [place] [id number] PCP - General Internal Medicine 05/17/22 documented as of this encounter
[2024-07-22 13:56] LABS: HIV 1/2 Ab P24 Ag Result Negative (Negative)
[2024-07-22 15:11] LABS: Hepatitis B Surface Antigen Negative (Negative)
[2024-07-22 15:17] LABS: HAV RESULT Negative (Negative); Hepatitis B Core IgM Result Negative (Negative)
[2024-07-22 15:29] LABS: Hepatitis C Virus Antibody Negative (Negative)
[2024-07-22 19:56] LABS: Rapid Plasma Reagin Non-Reactive (NonReactive)
== END 2024-07-22 12:07 | disposition home or self-care (01) ==
LOC: ANHLAB 12:07
PROVIDERS: PCP Nurse Practitioner Family; Visit Provider Student in an Organized Health Care Education/Training Program
DX: Z11.3 Encounter for screening for infections with a predominantly sexual mode of transmission (principal)
CPT/HCPCS: 36415; 80074; 86592; 86695; 86696; 86703; G0432